=== PATIENT | male | born 1955 | race Caucasian/White ===

== ENCOUNTER → 2023-09-04 | Emergency (ER) | payer OTHER ==
[~2023-09-04] VITALS: Ht 165.1 cm; Wt 60.8 kg
[~2023-09-04] MED LIST: ACETAMINOPHEN 650 MG/SUPP.RECT RC ONE; AMIN30LI2 GT; ASCO-352 GT; CRAN3875 GT; CRAN425C6 GT; DIVA500T54 GT; FAMO20TA80 GT; FERR325T28 GT; FINA5TAB3 GT; GLYC2TAB21 GT; LACT-96 GT; LEVE500T20 GT; MULT-213 GT; OLAN5TAB3 GT; PRED5TAB GT; RISP2TAB85 GT; SCOP1PAT11 TD; ZINC220C6 GT
[2023-09-04] MEDS: ACETAMINOPHEN 650 MG/SUPP.RECT RC ONE (09:45)
[2023-09-04 09:57] LABS: APPEARANCE,URINE Turbid (CLEAR); BILIRUBIN,URINE Negative (NEGATIVE); BLOOD, URINE Large Ery/uL (NEGATIVE); COLOR,URINE YELLOW (YELLOW); KETONES,URINE Negative (NEGATIVE); LEUKOCYTE ESTERASE ,URINE Large (NEGATIVE); NITRITE, URINE Positive (NEGATIVE); PROTEIN,URINE 100 mg/dl (NEGATIVE); UGLUCOSE Negative (NEGATIVE); UROBILINOGEN,URINE 0.2 EU/dL (0.2)
[2023-09-04 09:58] LABS: BASOPHILS % (AUTO) 0.1 % (0.0-2.0); HEMATOCRIT 35 % (39-51); HEMOGLOBIN 11.1 g/dL (13.5-17.5); LYMPHOCYTES # (AUTO) 0.3 K/uL (0.8-4.8); LYMPHOCYTES % (AUTO) 2.3 % (20.0-44.0); MEAN CORPUSCULAR HEMOGLOBIN 30 PG (26.0-33.0); MEAN CORPUSCULAR HGB CONC 32 g/dl (31.0-36.0); MEAN CORPUSCULAR VOLUME 93 fL (80-96); MONOCYTES # (AUTO) 0.4 K/uL (0.1-1.30); NEUTROPHILS # (AUTO) 11.6 K/uL (1.8-8.9); NEUTROPHILS % (AUTO) 94.6 % (43.0-81.0); PLATELET COUNT (AUTO) 150 K/uL (150-450); RED BLOOD CELL COUNT(AUTO) 3.75 MIL/uL (4.5-6.0); RED CELL DISTRIBUTION WIDTH 14.3 % (11.5-15.0); WHITE BLOOD COUNT (AUTO) 12.3 K/uL (4.3-11.0)
[2023-09-04 10:04] LABS: CARBON DIOXIDE 28 mmol/L (21-32); CHLORIDE 105 mmol/L (98-107); GLUCOSE 123 mg/dL (74-106); POTASSIUM 4.1 mmol/L (3.5-5.1); SODIUM SERUM 139 mmol/L (136-145); UREA NITROGEN, BLOOD 36 mg/dL (7-18)
[2023-09-04] MEDS: IV NS 0.9% 1,000 ML BAG IV ONE (10:08)
[2023-09-04 10:09] LABS: INR 1.29 (0.91-1.10); PARTIAL THROMBOPLASTIN TIME 30.7 SEC (24.3-34.3); PROTHROMBIN TIME 13.1 SECS (9.2-11.1)
[2023-09-04 10:10] LABS: ADD URINE CULTURE YES; BACTERIA,URINE Many /HPF (None Seen); RBC,URINE 21-50 /HPF (0-2); WBC,URINE TOO NUMEROUS TO COUN /HPF (0-3)
[2023-09-04 10:12] LABS: LACTIC ACID 1.1 mmol/L (0.4-2.0)
[2023-09-04 10:19] LABS: ALANINE AMINOTRANSFERASE 44 U/L (12-78); ALBUMIN 1.8 g/dL (3.4-5.0); ALKALINE PHOSPHATASE 91 U/L (46-116); ASPARTATE AMINOTRANSFERASE 28 U/L (15-37); BILIRUBIN,DIRECT 0.2 mg/dL (0.0-0.2); BILIRUBIN,TOTAL 0.6 mg/dL (0.2-1.0); CALCIUM, SERUM 8.5 mg/dL (8.5-10.1); TOTAL PROTEIN, SERUM 6.8 g/dL (6.4-8.2)
[2023-09-04] MEDS: AZITHROMYCIN 500 MG in IV D5W 250 ML IV ONE (10:40)
[2023-09-04] MEDS: CEFTRIAXONE 1GM BAG (ER ONLY) 50 ML IV ONE (10:40)
[2023-09-04 15:28] VITALS: BP 125/74; TEMP 98.2; O2SAT 95
== END | disposition short-term general hospital (02) ==
LOC: ER 09:30
DX: A41.9 Sepsis, unspecified organism (principal); R65.20 Severe sepsis without septic shock; J96.01 Acute respiratory failure with hypoxia; N39.0 Urinary tract infection, site not specified; R00.0 Tachycardia, unspecified; I10 Essential (primary) hypertension; G40.909 Epilepsy, unspecified, not intractable, without status epilepticus; Z46.59 Encounter for fitting and adjustment of other gastrointestinal appliance and device; Z20.822 Contact with and (suspected) exposure to COVID-19; Z91.010 Allergy to peanuts
CPT/HCPCS: 99291; 96365; 96361; 87426; 96368; 93005; 71045; 84145; 85025; 80048; 87040 ×2; 87086; 83605; 80076; 81001; 36415; 84484; 85730; J7030; J7050; J0456; A4223; J0696; J7060

== ENCOUNTER → 2023-10-27 | Emergency (ER) | payer OTHER ==
[~2023-10-27] VITALS: Ht 182.9 cm; Wt 59.0 kg
[~2023-10-27] MED LIST changes: +ACET-2030 GT; +ACET-868 GT; -ACETAMINOPHEN 650 MG/SUPP.RECT RC ONE; +BISA10SU11 RC; +MAGN400O6 GT; +NA P133E RC; +RISP1TAB97 GT; +TAMS-12 GT
[2023-10-27 12:50] LABS: BASOPHILS % (AUTO) 0.2 % (0.0-2.0); EOSINOPHILS % (AUTO) 0.1 % (0.0-6.0); HEMATOCRIT 33 % (39-51); LYMPHOCYTES # (AUTO) 0.5 K/uL (0.8-4.8); LYMPHOCYTES % (AUTO) 3.5 % (20.0-44.0); MEAN CORPUSCULAR HEMOGLOBIN 33 PG (26.0-33.0); MEAN CORPUSCULAR HGB CONC 33 g/dl (31.0-36.0); MEAN CORPUSCULAR VOLUME 98 fL (80-96); MONOCYTES # (AUTO) 0.6 K/uL (0.1-1.30); MONOCYTES % (AUTO) 4.1 % (2.0-12.0); NEUTROPHILS # (AUTO) 12.5 K/uL (1.8-8.9); NEUTROPHILS % (AUTO) 92.1 % (43.0-81.0); PLATELET COUNT (AUTO) 345 K/uL (150-450); RED BLOOD CELL COUNT(AUTO) 3.37 MIL/uL (4.5-6.0); RED CELL DISTRIBUTION WIDTH 17.2 % (11.5-15.0); WHITE BLOOD COUNT (AUTO) 13.6 K/uL (4.3-11.0)
[2023-10-27] MEDS: IV NS 0.9% 500 ML BAG IV ONE (13:04)
[2023-10-27 13:11] LABS: CALCIUM, SERUM 9.2 mg/dL (8.5-10.1); CREATININE 0.9 mg/dL (0.6-1.3); POTASSIUM 4.1 mmol/L (3.5-5.1)
[2023-10-27 16:00] VITALS: BP 116/70; TEMP 97.7; O2SAT 98
== END | disposition short-term general hospital (02) ==
LOC: ER 12:02
DX: K94.23 Gastrostomy malfunction (principal); G40.909 Epilepsy, unspecified, not intractable, without status epilepticus; I10 Essential (primary) hypertension; Z91.010 Allergy to peanuts; Z20.822 Contact with and (suspected) exposure to COVID-19; Z87.39 Personal history of other diseases of the musculoskeletal system and connective tissue; Y84.8 Other medical procedures as the cause of abnormal reaction of the patient, or of later complication, without mention of misadventure at the time of the procedure; Y82.8 Other medical devices associated with adverse incidents
CPT/HCPCS: 99285; 43762; 87426; 85025; 80048; 36415; 87081; J7040; A4223

== ENCOUNTER 2024-01-19 08:12 | Emergency (ER) | payer OTHER ==
[~2024-01-19] VITALS: Ht 170.2 cm; Wt 58.5 kg
[~2024-01-19 08:12] MED LIST changes: -CRAN425C6 GT; -FERR325T28 GT; +MENT113O TP; -PRED5TAB GT; -RISP2TAB85 GT; -ZINC220C6 GT
[2024-01-19] MEDS: IV NS 0.9% 1,000 ML BAG IV ONE ×2 (08:30→13:30)
[2024-01-19] MEDS: CEFEPIME 1 GM in IV D5W 50 ML IV ONE (08:30)
[2024-01-19] MEDS ORDERED: ACETAMINOPHEN 325 MG TABLET ONE ×2 (08:33→12:33)
[2024-01-19 08:40] LABS: BASOPHILS % (AUTO) 0.3 % (0.0-2.0); HEMATOCRIT 39 % (39-51); HEMOGLOBIN 12.6 g/dL (13.5-17.5); LYMPHOCYTES # (AUTO) 0.3 K/uL (0.8-4.8); LYMPHOCYTES % (AUTO) 3.3 % (20.0-44.0); MEAN CORPUSCULAR HEMOGLOBIN 32 PG (26.0-33.0); MEAN CORPUSCULAR HGB CONC 33 g/dl (31.0-36.0); MEAN CORPUSCULAR VOLUME 96 fL (80-96); MONOCYTES # (AUTO) 0.9 K/uL (0.1-1.30); MONOCYTES % (AUTO) 9.7 % (2.0-12.0); NEUTROPHILS # (AUTO) 8.4 K/uL (1.8-8.9); NEUTROPHILS % (AUTO) 86.7 % (43.0-81.0); PLATELET COUNT (AUTO) 380 K/uL (150-450); RED CELL DISTRIBUTION WIDTH 15.9 % (11.5-15.0); WHITE BLOOD COUNT (AUTO) 9.7 K/uL (4.3-11.0)
[2024-01-19] MEDS: ACETAMINOPHEN 160 MG/5 ML GT ONE (08:40)
[2024-01-19 08:41] LABS: APPEARANCE,URINE TURBID (CLEAR); BILIRUBIN,URINE NEGATIVE (NEGATIVE); BLOOD, URINE 3+ Ery/uL (NEGATIVE); COLOR,URINE YELLOW (YELLOW); KETONES,URINE NEGATIVE (NEGATIVE); LEUKOCYTE ESTERASE ,URINE 3+ (NEGATIVE); NITRITE, URINE NEGATIVE (NEGATIVE); PH,URINE 8.5 (5.0-8.0); PROTEIN,URINE 2+ mg/dl (NEGATIVE); UGLUCOSE NEGATIVE (NEGATIVE); UROBILINOGEN,URINE 0.2 EU/dL (0.2)
[2024-01-19] MEDS ORDERED: TERA1CAP11 GT (08:44)
[2024-01-19 08:49] LABS: ADD URINE CULTURE YES; BACTERIA,URINE 1+ /HPF (None Seen); RBC,URINE 21-50 /HPF (0-2); SQUAMOUS EPITHELIAL CELL,UR None Seen /HPF (None Seen); WBC,URINE 81-100 /HPF (0-3)
[2024-01-19 08:54] LABS: ALANINE AMINOTRANSFERASE 15 U/L (12-78); ALBUMIN 2.7 g/dL (3.4-5.0); ALKALINE PHOSPHATASE 80 U/L (46-116); ASPARTATE AMINOTRANSFERASE 9 U/L (15-37); BILIRUBIN,DIRECT 0.2 mg/dL (0.0-0.2); BILIRUBIN,TOTAL 0.7 mg/dL (0.2-1.0); CALCIUM, SERUM 9.1 mg/dL (8.5-10.1); CARBON DIOXIDE 27 mmol/L (21-32); CHLORIDE 104 mmol/L (98-107); CREATININE 1.7 mg/dL (0.6-1.3); GLUCOSE 131 mg/dL (74-106); POTASSIUM 5.2 mmol/L (3.5-5.1); SODIUM SERUM 142 mmol/L (136-145); TOTAL PROTEIN, SERUM 7.7 g/dL (6.4-8.2)
[2024-01-19 08:56] LABS: INR 1.2 (0.91-1.10); PARTIAL THROMBOPLASTIN TIME 29.6 SEC (24.3-34.3); PROTHROMBIN TIME 12.6 SECS (9.2-11.1)
[2024-01-19 09:00] LABS: LACTIC ACID 1.8 mmol/L (0.4-2.0)
[2024-01-19 09:10] LABS: UREA NITROGEN, BLOOD 92 mg/dL (7-18)
[2024-01-19] MEDS: VANCOMYCIN 1 GM in IV D5W 250 ML IV ONE (09:25)
[2024-01-19] MEDS ORDERED: CT SWABBABLE VALVE TRANS SET 1 EA INFUS.SET MC ONE (09:38)
[2024-01-19] MEDS ORDERED: IV NS 0.9% 250 ML IV ONE (09:38)
[2024-01-19] MEDS ORDERED: IOHEXOL-350 100 ML VIAL IV ONE (09:38)
[2024-01-19] MEDS: ASPIRIN 325 MG TABLET GT ONE (11:02)
[2024-01-19] MEDS ORDERED: ASPIRIN 325 MG TABLET ONE (11:06)
[2024-01-19] MEDS: ACETAMINOPHEN 650 MG/20 ML UDC- SA PATIENTS-FEVER ONLY GT PRN (12:38)
[2024-01-19] MEDS ORDERED: KETOROLAC TROMETHAMINE 15 MG/ML VIAL ONE (13:35)
[2024-01-19] MEDS: KETOROLAC TROMETHAMINE 15 MG/ML VIAL IV ONE (13:41)
[2024-01-19 16:00] VITALS: BP 111/84; TEMP 99.4; O2SAT 98
== END 2024-01-19 16:51 ==
LOC: ER 08:14
DX: A41.9 Sepsis, unspecified organism (principal); I63.9 Cerebral infarction, unspecified; G40.909 Epilepsy, unspecified, not intractable, without status epilepticus; G93.49 Other encephalopathy; I10 Essential (primary) hypertension; I49.3 Ventricular premature depolarization; J43.9 Emphysema, unspecified; N39.0 Urinary tract infection, site not specified; Z87.39 Personal history of other diseases of the musculoskeletal system and connective tissue; Z91.010 Allergy to peanuts; Z20.822 Contact with and (suspected) exposure to COVID-19
CPT/HCPCS: 99291; 70498; 96365; 71045; 96367; 96361; 96375; 87426; 51702; 70496; 84145; 85025; 80048; 87040; 87086; 83605; 80076; 81001; 36415; 84484 ×2; 85730; 70450; 93005 ×2; J3370; J7060; J7030; J7050; A4223; J0692; Q9967; J1885